=== PATIENT | female | born 1970 | race Caucasian/White ===

== ENCOUNTER 2022-09-04 10:56 | Observation (INO) ==
[2022-09-04] MEDS ORDERED: ASPIRIN 325 MG TABLET PO STA (11:33)
[2022-09-04 11:36] LABS: Basophils # 0.1 10*3/uL (0.0-0.2); Basophils % 0.7 % (0.0-0.8); Eosinophils # 0.2 10*3/uL (0.0-0.87); Eosinophils % 2.2 % (0.00-10.9); Hematocrit 41.2 VOL% (35.7-47.0); Hemoglobin 13.8 GM/DL (12.0-16.0); Immature Granulocytes % 0.3 %; Immature Granulocytes Absolute 0.02 #; Lymphocytes # 2.4 10*3/uL (1.4-4.0); Lymphocytes % 31.4 % (21.3-54.2); Mean Corpuscular HGB Conc 33.5 GM/DL (32-36); Mean Corpuscular Volume 95.2 FL (87-102); Monocytes # 0.6 10*3/uL (0.11-0.8); Monocytes % 7.3 % (1.7-12.7); Neutrophils % 58.1 % (38.7-73.9); Platelet Count 170 T/CUMM (130-400); Red Blood Count 4.33 MC/CUMM (3.8-5.5); Red Cell Distribution Width 12.5 % (9.3-17.3); White Blood Count 7.7 T/CUMM (4-12)
[2022-09-04 11:58] LABS: Albumin 3.7 G/DL (3.4-5.0); Bilirubin,Total 0.5 MG/DL (0.20-1.00); Calcium 8.6 MG/DL (8.5-10.1); Osmolality,Calculated 288.7 MOS/KG (273-304); Potassium 4.3 MMOL/L (3.5-5.1); Total Protein 6.7 G/DL (6.4-8.2)
[2022-09-04] MEDS ORDERED: INSULIN REGULAR 100 UNIT/ML SUBCUT STA (12:20)
[2022-09-04] MEDS ORDERED: hydrALAZINE 20 MG/1 ML VIAL IV PRN (13:06)
[2022-09-04] MEDS ORDERED: ACETAMINOPHEN 325 MG TABLET PO PRN (13:06)
[2022-09-04] MEDS ORDERED: ALUM/MAG/SIMETH/LIDO VISC 1:1 30 ML BOTTLE PO STA (13:13)
[2022-09-04] MEDS ORDERED: MORPHINE 2 MG/1 ML SYRINGE IV STA (13:13)
[2022-09-04] MEDS ORDERED: PROMETHAZINE 25 MG TABLET PO PRN (13:13)
[2022-09-04] MEDS: ONDANSETRON 4 MG/2 ML VIAL IV PRN ×2 (13:44→22:01)
[2022-09-04] MEDS: SPIRONOLACTONE 25 MG TABLET PO SCH (14:35)
[2022-09-04] MEDS: METOPROLOL SUCCINATE XL 100 MG TABLET PO SCH ×2 (14:36→22:08)
[2022-09-04] MEDS: ENOXAPARIN 40 MG/0.4 ML SYRINGE SUBCUT SCH (15:00)
[2022-09-04] MEDS ORDERED: GLUCAGON 1 MG VIAL IM PRN (16:17)
[2022-09-04] MEDS ORDERED: DEXTROSE 10% 250 ML BAG IV PRN (16:17)
[2022-09-04] MEDS: SUCRALFATE 1 GM TABLET PO SCH ×2 (16:55→22:02)
[2022-09-04] MEDS: GABAPENTIN 400 MG CAPSULE PO SCH ×2 (16:55→22:02)
[2022-09-04] MEDS: METHOCARBAMOL 750 MG TABLET PO SCH ×2 (16:55→22:02)
[2022-09-04] MEDS ORDERED: INSULIN REGULAR ** CONC 500 UNIT/ML ** 3 ML VIAL SUBCUT SCH (17:00)
[2022-09-04] MEDS ORDERED: INSULIN GLARGINE 100 UNIT/ML SUBCUT SCH ×2 (21:00→22:30)
[2022-09-04] MEDS ORDERED: ATORVASTATIN 40 MG TABLET PO SCH (21:00)
[2022-09-04] MEDS: TOPIRAMATE 100 MG TABLET PO SCH (22:02)
[2022-09-04] MEDS: MAGNESIUM OXIDE 400 MG TABLET PO SCH (22:03)
[2022-09-04] MEDS: SACUBITRIL/VALSARTAN 49-51 MG TABLET PO SCH (22:03)
[2022-09-04] MEDS: MORPHINE 2 MG/1 ML SYRINGE IV PRN (23:51)
[2022-09-05 05:33] LABS: Basophils # 0.1 10*3/uL (0.0-0.2); Basophils % 0.8 % (0.0-0.8); Eosinophils # 0.2 10*3/uL (0.0-0.87); Eosinophils % 2.7 % (0.00-10.9); Hemoglobin 12.8 GM/DL (12.0-16.0); Immature Granulocytes % 0.3 %; Immature Granulocytes Absolute 0.02 #; Lymphocytes # 2.5 10*3/uL (1.4-4.0); Lymphocytes % 38.9 % (21.3-54.2); Mean Corpuscular HGB Conc 33.7 GM/DL (32-36); Mean Corpuscular Volume 95.2 FL (87-102); Mean Platelet Volume 11.1 FL (9.6-12.0); Monocytes # 0.6 10*3/uL (0.11-0.8); Monocytes % 8.9 % (1.7-12.7); Neutrophils % 48.4 % (38.7-73.9); Platelet Count 152 T/CUMM (130-400); Red Blood Count 3.99 MC/CUMM (3.8-5.5); Red Cell Distribution Width 12.5 % (9.3-17.3); White Blood Count 6.4 T/CUMM (4-12)
[2022-09-05] MEDS: MORPHINE 2 MG/1 ML SYRINGE IV PRN (05:53)
[2022-09-05 06:01] LABS: Eosinophils 2 % (0-10); Lymphocytes 41 % (20-55); Platelet Estimate Decreased; Total Cells Counted 100
[2022-09-05 06:02] LABS: Calcium 8.3 MG/DL (8.5-10.1); Osmolality,Calculated 286.1 MOS/KG (273-304); Potassium 3.7 MMOL/L (3.5-5.1); Risk Ratio 3.78; VLDL Cholesterol 14.2 MG/DL
[2022-09-05] MEDS ORDERED: DEXTROSE 50% 25 GM/50 ML VIAL IV PRN (08:51)
[2022-09-05] MEDS ORDERED: PANTOPRAZOLE 40 MG TABLET PO SCH (09:00)
[2022-09-05] MEDS ORDERED: FUROSEMIDE 40 MG TABLET PO SCH (09:00)
[2022-09-05] MEDS: METOPROLOL SUCCINATE XL 100 MG TABLET PO SCH (09:35)
[2022-09-05] MEDS: SACUBITRIL/VALSARTAN 49-51 MG TABLET PO SCH (09:35)
[2022-09-05] MEDS: TOPIRAMATE 100 MG TABLET PO SCH (09:35)
[2022-09-05] MEDS: SUCRALFATE 1 GM TABLET PO SCH ×2 (09:36→12:06)
[2022-09-05] MEDS: METHOCARBAMOL 750 MG TABLET PO SCH ×2 (09:36→15:16)
[2022-09-05] MEDS: GABAPENTIN 400 MG CAPSULE PO SCH ×2 (09:36→15:15)
[2022-09-05] MEDS: MAGNESIUM OXIDE 400 MG TABLET PO SCH (09:36)
[2022-09-05] MEDS: SPIRONOLACTONE 25 MG TABLET PO SCH (09:36)
[2022-09-05] MEDS: INSULIN REGULAR 100 UNIT/ML SUBCUT SCH ×2 (09:36→12:06)
[2022-09-05] MEDS: ENOXAPARIN 40 MG/0.4 ML SYRINGE SUBCUT SCH (15:15)
[2022-09-05 16:09] VITALS: BP 94/63
== END 2022-09-05 16:38 | disposition home or self-care (01) ==
LOC: N.EDINP 10:56 → N.ED 10:56 → N.EDINP 15:51 → N.TELES 16:07
PROVIDERS: ADMIT Internal Medicine Cardiovascular Disease; ATTEND Internal Medicine Cardiovascular Disease